=== PATIENT | male | born 1965 | race Caucasian/White ===

== ENCOUNTER → 2019-08-04 | Outpatient (CLI) | payer OTHER ==
--- NOTE | 2019-08-05 13:52 | RADIOLOGY REPORT (SQ) ---
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 RADIONUCLIDE AND DOSE: 10.4 mCi F18 FDG The route of agent administration: Intravenous FASTING BLOOD SUGAR: 79 mg/dl CONTRAST TYPE AND DOSE: No CT contrast given. TECHNIQUE: Blood glucose level was verified. Above dose of FDG was injected intravenously. 2-D seg mented attenuation correction images were obtained from the base of the skull to the midthighs. Nonc ontrast CT images were obtained for attenuation correction and fusion with emission images. CT image s were performed without oral or intravenous contrast and are not sensitive for parenchymal lesions. A series of overlapping emission PET images were obtained. Images reviewed and manipulated at [facility] work station by the radiologist. Images stored on PACS. LIMITATIONS: None. FINDINGS: HEAD AND NECK: There is focus of increased FDG uptake (maximum SUV of 6.9) within the rig ht sublingual space. No other areas of abnormal metabolic activity are identified in the soft tissue s of the head and neck. CHEST: No areas of abnormal metabolic activity in the chest. ABDOMEN AND PELVIS: The liver demonstrates heterogeneous non focal FDG uptake. With an average SUV o f 1.3. There is expected physiologic activity throughout the gastrointestinal and genitourinary trac ts. No areas of abnormal metabolic activity are identified in the abdomen and pelvis. PROXIMAL LOWER EXTREMITIES: No areas of abnormal metabolic activity in the soft tissues of the lower extremities. BONES: No areas of abnormal metabolic activity in the imaged axial and appendicular skeleton. ADDITIONAL CT FINDINGS: No acute findings. OTHER: No other findings. IMPRESSION: Focus of increased FDG uptake within the right sublingual space could represent the dori gnant neoplasm at the border of the tongue. There is no metabolic evidence of metastases. TECHNICAL DOCUMENTATION: JOB ID: [id number] 1889 [employer]- All Rights Reserved Reading location - IP/workstation name: [email or web address]
== END ==
LOC: RAD 08:13
PROVIDERS: ATTEND Radiology Radiation Oncology
DX: C02.1 Malignant neoplasm of border of tongue (principal)
CPT/HCPCS: 78815; A9552

== ENCOUNTER → 2020-02-16 | Outpatient (CLI) | payer OTHER ==
--- NOTE | 2020-02-16 12:23 | RADIOLOGY REPORT (SQ) ---
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 TECHNIQUE: Blood glucose level was verified. Above dose of FDG was injected intravenously. 2-D seg mented attenuation correction images were obtained from the base of the skull to the midthighs. Nonc ontrast CT images were obtained for attenuation correction and fusion with emission images. CT image s were performed without oral or intravenous contrast and are not sensitive for parenchymal lesions. A series of overlapping emission PET images were obtained. Images reviewed and manipulated at [facility] work station by the radiologist. Images stored on PACS. LIMITATIONS: None. FINDINGS: HEAD AND NECK: Focal increased uptake 5.8 SUV right level 2 is just above hyoid. Difficul t to see a morphologic lymph node. CHEST: No areas of abnormal metabolic activity in the chest. ABDOMEN AND PELVIS: No areas of abnormal metabolic activity in the abdomen or pelvis. Expected physi ologic activity is present in the genitourinary system and bowel. PROXIMAL LOWER EXTREMITIES: No areas of abnormal metabolic activity in the soft tissues of the lower extremities. BONES: No abnormal metabolic activity in the visualized skeleton. ADDITIONAL CT FINDINGS: Lower lumbar fusion. OTHER: Blood pool 1.3 SUV. Liver background 1.7 SUV. IMPRESSION: Small hypermetabolic right level 2 cervical node. TECHNICAL DOCUMENTATION: JOB ID: [id number] [employer]- All Rights Reserved Reading location - IP/workstation name: [email or web address]
== END ==
LOC: RAD 08:01
PROVIDERS: ATTEND Radiology Radiation Oncology
DX: C02.1 Malignant neoplasm of border of tongue (principal)
CPT/HCPCS: 78815; A9552

== ENCOUNTER 2020-03-26 08:38 | Emergency (ER) | payer OTHER ==
[2020-03-26 09:13] LABS: HEMATOCRIT 38.5 % (37.9-51.0); HEMOGLOBIN 13.8 g/dL (13.5-17.0); MEAN CORPUSCULAR HEMOGLOBIN 37.4 pg (27.0-33.4); MEAN CORPUSCULAR HGB CONC 35.8 g/dL (32.0-36.0); MEAN CORPUSCULAR VOLUME 105 fl (80-97); PLATELET COUNT 216 10^3/uL (150-450); RED BLOOD COUNT 3.68 10^6/uL (4.35-5.55); RED CELL DISTRIBUTION WIDTH 13.4 % (11.5-14.0)
[2020-03-26 09:24] LABS: ACETAMINOPHEN < 10 ug/mL (10-30); ALBUMIN 3.7 g/dL (3.5-5.0); ALCOHOL < 10 mg/dL (NONE DETECTED); ALKALINE PHOSPHATASE 79 U/L (38-126); ANION GAP 10 (5-19); ASPARTATE AMINO TRANSFERASE 33 U/L (17-59); BILIRUBIN,DIRECT 0.3 mg/dL (0.0-0.4); BILIRUBIN,TOTAL 0.9 mg/dL (0.2-1.3); BLOOD UREA NITROGEN 17 mg/dL (7-20); CALCIUM 9.9 mg/dL (8.4-10.2); CARBON DIOXIDE 24 mmol/L (22-30); CHLORIDE 100 mmol/L (98-107); GLUCOSE 83 mg/dL (75-110); POTASSIUM 3.6 mmol/L (3.6-5.0); SALICYLATE < 1.0 mg/dL (2.0-20.0); TOTAL PROTEIN 6.6 g/dL (6.3-8.2)
[2020-03-26] MEDS ORDERED: LORAZEPAM INJ 2 MG/1 ML VIAL IV ONE (09:37)
[2020-03-26] MEDS ORDERED: DIPHENHYDRAMINE HCL 50 MG/ML VIAL IV ONE ×2 (09:38→10:21)
[2020-03-26] MEDS ORDERED: HALOPERIDOL LACTATE INJ 5 MG/1 ML VIAL IM ONE (09:39)
[2020-03-26 09:40] LABS: ABSOLUTE LYMPHOCYTES# (MANUAL) 0.4 10^3/uL (0.5-4.7); BASOPHILS % (MANUAL) 1 % (0-2); EOSINOPHILS % (MANUAL) 0 % (0-6); LYMPHOCYTES % (MANUAL) 4 % (13-45); MONOCYTES % (MANUAL) 10 % (3-13); SEGMENTED NEUTROPHILS % (MAN) 85 % (42-78); TOTAL CELLS COUNTED 100
[2020-03-26 09:41] LABS: PLATELET COMMENT ADEQUATE; POLYCHROMASIA SLIGHT
[2020-03-26] MEDS ORDERED: THIAMINE HCL INJ 200 MG/2 ML VIAL IM ONE (10:25)
--- NOTE | 2020-03-26 11:00 | RADIOLOGY REPORT (SQ) ---
EXAM DESCRIPTION: CHEST SINGLE VIEW IMAGES COMPLETED DATE/TIME: 03/26/2020 10:43 am REASON FOR STUDY: altered mental status COMPARISON: CT chest 12/11/2013 NUMBER OF VIEWS: Two views TECHNIQUE: 2 frontal radiographic views of the chest acquired. LIMITATIONS: None. FINDINGS: LUNGS AND PLEURA: The lungs are hyperexpanded and hyperlucent. No focal consolidation. N o pleural effusion or pneumothorax. MEDIASTINUM AND HILAR STRUCTURES: No masses. Contour normal. HEART AND VASCULAR STRUCTURES: Heart normal in size. Normal vasculature. BONES: No acute findings. HARDWARE: Multiple surgical clips project over the lower neck. OTHER: No other significant finding. IMPRESSION: Emphysematous changes without evidence of acute pulmonary process. TECHNICAL DOCUMENTATION: JOB ID: [id number] 2010 [employer]- All Rights Reserved Reading location - IP/workstation name: [email or web address]
[2020-03-26] MEDS: MAGNESIUM SULFATE/D5W 1 GM/100 ML RTUPB IV SCH ×2 (11:50→12:53)
--- NOTE | 2020-03-26 11:56 | RADIOLOGY REPORT (SQ) ---
EXAM DESCRIPTION: CT HEAD WITHOUT IMAGES COMPLETED DATE/TIME: 03/26/2020 11:40 am REASON FOR STUDY: altered mental status COMPARISON: None. TECHNIQUE: Axial images acquired through the brain without intravenous contrast. Images reviewed wi th bone, brain and subdural windows. Images stored on PACS. All CT scanners at this facility use dose modulation, iterative reconstruction, and/or weight based d osing when appropriate to reduce radiation dose to as low as reasonably achievable (ALARA). [facility]: Dose Right [facility]: CareDose [facility]: Dose Right [facility]: Teradose 4D [facility]: [employer] RADIATION DOSE: CT Rad equipment meets quality standard of care and radiation dose reduction techniq ues were employed. CTDIvol: 53.2 mGy. DLP: 1017 mGy-cm. mGy. LIMITATIONS: None. FINDINGS: VENTRICLES: Normal size and contour. CEREBRUM: No masses. No hemorrhage. No midline shift. No evidence for acute infarction. Normal gra y/white matter differentiation. No areas of low density in the white matter. CEREBELLUM: No masses. No hemorrhage. No alteration of density. No evidence for acute infarction. EXTRAAXIAL SPACES: No fluid collections. No masses. ORBITS AND GLOBE: No intra- or extraconal masses. Normal contour of globe without masses. CALVARIUM: No fracture. PARANASAL SINUSES: No fluid or mucosal thickening. SOFT TISSUES: No mass or hematoma. OTHER: No other significant finding. IMPRESSION: NORMAL BRAIN CT WITHOUT CONTRAST. EVIDENCE OF ACUTE STROKE: NO. COMMENT: Quality ID # [id number]: Final reports with documentation of one or more dose reduction techniques (e.g., Automated exposure control, adjustment of the mA and/or kV according to patient size, use of iterative reconstruction technique) TECHNICAL DOCUMENTATION: JOB ID: [id number] 2010 [employer]- All Rights Reserved Reading location - IP/workstation name: [email or web address]
--- NOTE | 2020-03-26 12:02 | RADIOLOGY REPORT (SQ) ---
EXAM DESCRIPTION: CT FACIAL AREA WITHOUT IMAGES COMPLETED DATE/TIME: 03/26/2020 11:40 am REASON FOR STUDY: recent right jaw surgery COMPARISON: None. TECHNIQUE: Noncontrasted images through the facial bones and orbits windowed for bone and soft tissu e. Additional coronal and sagittal reconstructed images reviewed. All images stored on PACS. All CT scanners at this facility use dose modulation, iterative reconstruction, and/or weight based d osing when appropriate to reduce radiation dose to as low as reasonably achievable (ALARA). [facility]: Dose Right [facility]: CareDose [facility]: Dose Right [facility]: Teradose 4D [facility]: [employer] RADIATION DOSE: CT Rad equipment meets quality standard of care and radiation dose reduction techniq ues were employed. CTDIvol: 30.4 mGy. DLP: 754 mGy-cm. LIMITATIONS: None. FINDINGS: FACIAL BONES: No fracture or bone lesion. ORBITS: Intact. No fracture. Symmetric intact globes and retroorbital soft tissues. PARANASAL SINUSES: Clear. Mild mucosal thickening. No nasal polyps. Maxillary sinus outlets are pat ent. A karen bullosa is present on the left with mild mucosal thickening. SOFT TISSUES: Numerous surgical clips are present in the soft tissues about the mandible bilaterally. There is an 8 mm focus of subcutaneous emphysema chest posterior to the angle of the mandible on th e right. No definite focal fluid collection. INFERIOR BRAIN: Limited view. No acute findings. OTHER: No other significant finding. IMPRESSION: Postoperative changes about the mandible. A small amount of gas is present in the soft tissues on the right. This may be post procedural. No discrete fluid collection is seen. Examinati on is limited in the absence of intravenous contrast. TECHNICAL DOCUMENTATION: JOB ID: [id number] Quality ID # [id number]: Final reports with documentation of one or more dose reduction techniques (e.g., Au tomated exposure control, adjustment of the mA and/or kV according to patient size, use of iterative reconstruction technique) 2010 [employer]- All Rights Reserved Reading location - IP/workstation name: [email or web address]
[2020-03-26] MEDS ORDERED: RINGERS SOLUTION,LACTATED 1,000 ML IV ONE (13:00)
--- NOTE | 2020-03-26 13:25 | EKG REPORT ---
SEVERITY:- ABNORMAL ECG - SINUS RHYTHM NONSPECIFIC T ABNORMALITIES, ANT-LAT LEADS BORDERLINE PROLONGED QT INTERVAL : Confirmed by: Fabio Gallagher MD 26-Mar-2020 13:25:22
[2020-03-26 14:28] LABS: APPEARANCE,URINE CLOUDY; BILIRUBIN,URINE SMALL (NEGATIVE); COLOR,URINE AMBER; GLUCOSE, URINE NEGATIVE (NEGATIVE); KETONES,URINE 20 mg/dL (NEGATIVE); LEUKOCYTE ESTERASE,URINE NEGATIVE (NEGATIVE); NITRITE,URINE NEGATIVE (NEGATIVE); PROTEIN,URINE 100 mg/dL (NEGATIVE); URINE SPECIFIC GRAVITY 1.025
[2020-03-26 14:40] LABS: URINE AMPHETAMINES SCREEN NEGATIVE; URINE BARBITURATES SCREEN NEGATIVE; URINE BENZODIAZEPINES SCREEN NEGATIVE; URINE COCAINE SCREEN NEGATIVE; URINE METHADONE SCREEN NEGATIVE; URINE PHENCYCLIDINE SCREEN NEGATIVE
[2020-03-26 14:41] LABS: URINE MARIJUANA (THC) SCREEN UNCONFIRMED POSITIVE
[2020-03-26 15:40] VITALS: BP 109/79
--- NOTE | 2020-03-26 16:16 | PSYCHOLOGICAL NOTE ---
Psych Note - Psych Note Date seen by psych provider: 03/26/20 Time seen by psych provider: 13:05 Psych Note: Reason for Consult; AMS Patient arrived to [facility] ED via POV for concerns of AMS. Patient has a reported history of severe alcohol abuse and drinks daily. He reportedly drinks daily; His current BAL is 0. Patient is unable to engage in evaluation. There is concern the patient is currently in withdrawal delirium. 15:50 Clinician is notified by attending physician the patient is now awake and talking. Patient reported "someone drove me here because I was trying to do too much and overheated." He confirms he drinks daily but has not drank in about 4 days. He states he has surgery on his jaw in June and states he is still in significant pain. He discloses he has a "bottle" at home but is unable to remember the name of the medication and states he will be out of it tomorrow. He then stated he has muscle relaxers at home also. He denies taking any medications today and states the last time he took pain medication was last night. He denies any thought of wanting to harm himself or others. He become irritable with asked about his pain medications and started to ignore clinician; taking the sheet out from underneath him then stood up and walked out the room to go to the bathroom. [place] controlled substance reporting system report is reviewed with attending physician Patient is alert and orienated to person, place time and circumstance. Mood is irritable with congruent affect. Patient denies suicidal and homicidal ideations. Delusions are absent behaviors congruent with an intact reality based presentation ie organized and linear thought process. Eye contact is poor. Conversational speech is extremely difficult to understand as patient mumbles and slurs his words. Patient only minimally engages in while attention and concentration is poor this appears to be volitional. Impression\\plan: Patient is cleared from acute psychiatric services. Patient declines assistance and to fully engage with clinician. There is concern the patient suffers from severe alcohol abuse and may be misusing his pain medications now. There is currently no indication he is suffering from withdrawal delirium, psychosis or thoughts of harming himself or others. Patient will be provided local resource list of area providers including detox facilities and mobile crisis contact information if he chooses to engage in services. Dr. Colin was consulted to care management of this patient; tending physicians in agreement with recommendations and disposition.
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
== END 2020-03-26 18:51 | disposition home or self-care (01) ==
LOC: ER 08:38
DX: F23 Brief psychotic disorder (principal); R41.82 Altered mental status, unspecified; Z88.0 Allergy status to penicillin; F17.210 Nicotine dependence, cigarettes, uncomplicated; Z98.890 Other specified postprocedural states
CPT/HCPCS: 93005; 96376; 99285; 96361; 96375; 96365; 96366; 36415; 80307 ×4; 82140; 83735; 84443; 85025; 80053; 81001; 84484; 71045; 70450; 70486; 93010; J1200; J1630; J2060; J3475; J3411; J7120

== ENCOUNTER 2020-07-04 19:50 | Emergency (ER) | payer OTHER ==
[2020-07-04 20:17] VITALS: BP 111/71
--- NOTE | 2020-07-04 20:19 | ER Document Report ---
ED General - General Chief Complaint: Displaced G-tube Stated Complaint: FEEDING TUBE CAME OUT Time Seen by Provider: 07/04/20 20:19 Primary Care Provider: VAUGHN MURILLO PA-C [Primary Care Provider] - Follow up as needed TRAVEL OUTSIDE OF THE [place] IN LAST 30 DAYS: No - HPI Notes: 54-year-old male presents from home after his G-tube accidentally fell out. 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 He states that he stood up and it fell out, occurred 1 hour prior to arrival to the emergency department. He states that he cleans it twice a day and has not had any issues since its placement. - Related Data Allergies/Adverse Reactions: Penicillins Allergy (Verified 07/04/20 20:02) Past Medical History - General Information source: Patient - Social History Smoking Status: Former Smoker Frequency of alcohol use: None Drug Abuse: Marijuana Family History: Malignancy Past Surgical History: Reports: Hx Oral Surgery - for jaw malignancy Review of Systems - Review of Systems Constitutional: No symptoms reported EENT: No symptoms reported Cardiovascular: No symptoms reported Respiratory: No symptoms reported Gastrointestinal: See HPI Genitourinary: No symptoms reported Male Genitourinary: No symptoms reported Musculoskeletal: No symptoms reported Skin: No symptoms reported Hematologic/Lymphatic: No symptoms reported Neurological/Psychological: No symptoms reported Physical Exam - Vital signs Vitals: Temp Pulse Resp BP Pulse Ox 97.0 F 105 H 14 111/71 98 07/04/20 20:06 07/04/20 20:06 07/04/20 20:06 07/04/20 20:06 07/04/20 20:06 - General General appearance: Appears well, Alert In distress: None - HEENT Head: Normocephalic, Atraumatic Extraocular movements intact: Yes Pupils: PERRL Pharynx: Other - Trach present - Respiratory Breath sounds: Normal - Cardiovascular Rhythm: Regular Heart sounds: Normal auscultation - Abdominal Inspection: Healed incision Distension: No distension Bowel sounds: Normal Tenderness: Nontender Notes: Gastrostomy site left upper quadrant, mucosal tissue, no surrounding erythema - Extremities General upper extremity: Normal ROM General lower extremity: Normal ROM - Neurological Neuro grossly intact: Yes Cognition: Normal Orientation: AAOx4 - Psychological Associated symptoms: Normal affect - Skin Skin Temperature: Warm Course - Re-evaluation Re-evalutation: 54-year-old male presents following dislodgment of his G-tube, placed 30 days ago. On expection of tube, appears that balloon is flaccid and does not inflate. His original tube does not appear to have any markings indicating the size, attempted to insert a 20 Moroccan into the tube and met resistance. Was able to easily pass a 16 Moroccan tube with auscultation of air heard. A confirmatory x-ray was ordered using Gastrografin. 07/04/20 22:02 Called [facility] to see about KUB read as it has been about an hour, will expedite read 07/04/20 22:13 Read available, balloon appears to be located in the gastric lumen with visible contrast per radiology 07/04/20 22:16 Patient was updated on results and instructed need to call his surgeon tomorrow morning. Return precautions given, stable at time of discharge. - Vital Signs Vital signs: Temp Pulse Resp BP Pulse Ox 97.0 F 105 H 14 111/71 98 07/04/20 20:06 07/04/20 20:06 07/04/20 20:06 07/04/20 20:06 07/04/20 20:06 - Laboratory Results Critical Laboratory Results Reviewed: No Critical Results - Radiology Results Critical Radiology Results Reviewed: No Critical Results Procedures - Additional Procedures Gastric tube replacement Time performed: 20:35 Additional Procedures: Gastric tube replacement Notes: Inspected patient's dislodged G-tube, there is no markings visible to indicate Moroccan size. Does appear the balloon is mild functional. Attempted to place a 20 Moroccan and met resistance. Was able to easily pass 16 Moroccan tube and balloon inflated to 6cc, able to auscultate bubbles. Confirmatory x-ray with dye ordered. Discharge - Discharge Clinical Impression: Gastrostomy tube dysfunction Disposition: HOME, SELF-CARE Additional Instructions: Please call your surgeon tomorrow to discuss your ED visit tonight, as discussed a smaller size tube had to be placed. Return to the emergency department concerning worsening symptoms. Referrals: VAUGHN MURILLO PA-C [Primary Care Provider] - Follow up as needed
--- NOTE | 2020-07-04 22:11 | RADIOLOGY REPORT (SQ) ---
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 FINDINGS: Single view is obtained. 40 mL of Omnipaque contrast material was infused via the patient's percutaneous gastrostomy tube. As a result, contrast fills the gastric lumen as well as the duodenal bulb. Postsurgical changes are evident about the lumbosacral spine. Additional rounded focus of hyperdensity projects over the left hemiabdomen. However, this could potentially overlie the patient. Otherwise, a few gas distended loops of bowel are visible throughout the abdomen. Surgical clips also project over the lower midabdomen. IMPRESSION: Percutaneous gastrostomy tube balloon appears to be located within the gastric lumen, confirmed by water-soluble contrast administration by the tube. A small focus of contrast material does appear to project over the left hemiabdomen though this may correspond to contrast on the patient's skin surface. Correlate with physical exam and consider reimaging after wiping the patient down for confirmation.
== END 2020-07-05 00:07 | disposition home or self-care (01) ==
LOC: ER 19:50
DX: K94.23 Gastrostomy malfunction (principal); C76.0 Malignant neoplasm of head, face and neck; F12.10 Cannabis abuse, uncomplicated; F17.200 Nicotine dependence, unspecified, uncomplicated; Z88.0 Allergy status to penicillin
CPT/HCPCS: 49465; 99284